=== PATIENT | female | born 1975 | race Caucasian/White ===

== ENCOUNTER 2023-02-27 14:59 | Outpatient (CLI) | payer BC | END 2023-02-27 15:00 | disposition home or self-care (01) | LOC: CSHMRI 14:59 | PROVIDERS: ATTEND Neurological Surgery | DX: M54.2 Cervicalgia (principal); M54.50 Low back pain, unspecified; M25.78 Osteophyte, vertebrae; M47.812 Spondylosis without myelopathy or radiculopathy, cervical region; M47.816 Spondylosis without myelopathy or radiculopathy, lumbar region | CPT/HCPCS: 72050; 72110; 72141; 72148 ==